=== PATIENT | female | born 1950 | race Two or more races ===

== ENCOUNTER → 2021-11-06 | Day surgery (SDC) | payer OTHER ==
[~2021-11-06] VITALS: Ht 160 cm; Wt 81.2 kg
[~2021-11-06] MED LIST: ADULT LOW DOSE81 M1 PO; GABAPENTIN100 M2 PO; SIMVASTATIN5 MG PO; ZOLOFT50 MG PO
== END | disposition home or self-care (01) ==
LOC: ADM 10-31 09:30 → CIR.AMB 07:36
PROVIDERS: ATTEND Orthopaedic Surgery
DX: M75.121 Complete rotator cuff tear or rupture of right shoulder, not specified as traumatic (principal); M75.111 Incomplete rotator cuff tear or rupture of right shoulder, not specified as traumatic; M75.21 Bicipital tendinitis, right shoulder; Z20.822 Contact with and (suspected) exposure to COVID-19; Z88.8 Allergy status to other drugs, medicaments and biological substances; Z91.040 Latex allergy status; J45.909 Unspecified asthma, uncomplicated; G43.909 Migraine, unspecified, not intractable, without status migrainosus; E66.9 Obesity, unspecified; Z85.3 Personal history of malignant neoplasm of breast; Z79.82 Long term (current) use of aspirin

== ENCOUNTER 2024-08-01 07:59 | Outpatient (CLI) | payer OTHER | END 2024-08-01 08:02 | disposition home or self-care (01) | LOC: NUCLEAR 07:59 | PROVIDERS: ATTEND Internal Medicine Cardiovascular Disease | DX: Z86.73 Personal history of transient ischemic attack (TIA), and cerebral infarction without residual deficits (principal) ==

== ENCOUNTER 2024-09-01 07:16 | Outpatient (CLI) | payer OTHER | END 2024-09-01 07:17 | disposition home or self-care (01) | LOC: NUCLEAR 07:16 | PROVIDERS: ATTEND Internal Medicine Cardiovascular Disease | DX: I20.1 Angina pectoris with documented spasm (principal) | CPT/HCPCS: 78452; 93017; A9500; J1250 ==